=== PATIENT | male | born 1950 | race Caucasian/White ===

== ENCOUNTER 2022-05-15 14:27 | Inpatient (IN) | payer MEDICARE, OTHER ==
[~2022-05-15] VITALS: Ht 182.9 cm; Wt 104.7 kg
[2022-05-15] MEDS ORDERED: RINGERS SOLUTION,LACTATED 1,000 ML IV ONE (16:30)
[2022-05-15 16:49] LABS: BASOPHILS % (AUTO) 0.4 % (0.0-2.0); EOSINOPHILS % (AUTO) 0.4 % (1.0-6.0); HEMATOCRIT 42.9 % (41-53); HEMOGLOBIN 14.2 g/dL (13.5-17.5); LYMPHOCYTES # (AUTO) 1.4 K/uL (1.0-4.8); MEAN CORPUSCULAR HEMOGLOBIN 31.2 pg (26.0-34.0); MEAN CORPUSCULAR HGB CONC 33.1 G/dL (31.0-37.0); MEAN CORPUSCULAR VOLUME 94 fL (80-100); MONOCYTES # (AUTO) 0.8 K/uL (0.1-1.0); MONOCYTES % (AUTO) 8.9 % (2.0-9.0); NEUTROPHILS # (AUTO) 6.3 K/uL (1.8-7.7); NEUTROPHILS % (AUTO) 74.3 % (40.0-70.0); PLATELET COUNT (AUTO) 188 K/uL (150-450); RED BLOOD CELL COUNT(AUTO) 4.56 MIL/uL (4.50-5.90)
[2022-05-15 17:02] LABS: ANION GAP 6 mmol/L (8-16); CALCIUM, TOTAL 9.2 mg/dL (8.8-10.5); CARBON DIOXIDE 28 mmol/L (22-29); CHLORIDE 104 mmol/L (98-107); CREATININE 0.84 mg/dL (0.60-1.30); GLOMERULAR FILTR. RATE CALC > 60 mL/min (>60); GLUCOSE,RANDOM 103 mg/dL (70-110); POTASSIUM 3.9 mmol/L (3.5-5.1); SODIUM SERUM 138 mmol/L (136-145); UREA NITROGEN, BLOOD 15 mg/dL (7-18)
[2022-05-15 17:08] LABS: ALANINE AMINOTRANSFERASE 11 U/L (12-78); ALBUMIN 3.7 g/dL (3.4-5.0); ALKALINE PHOSPHATASE 86 U/L (46-116); ASPARTATE AMINOTRANSFERASE 26 U/L (15-37); TOTAL PROTEIN, SERUM 7.3 g/dL (6.4-8.2)
[2022-05-15 17:09] LABS: APPEARANCE,URINE CLEAR (CLEAR); BILIRUBIN,URINE NEGATIVE (NEGATIVE); GLUCOSE, URINE (UA) NEGATIVE (NEGATIVE); KETONES,URINE NEGATIVE (NEGATIVE); LEUKOCYTE ESTERASE ,URINE NEGATIVE (NEGATIVE); NITRATE,URINE NEGATIVE (NEGATIVE); OCCULT BLOOD,URINE NEGATIVE (NEGATIVE); PH,URINE 6.5 (5.0-8.0); PROTEIN,URINE NEGATIVE (NEGATIVE); SPECIFIC GRAVITIY, URINE 1.007 (1.003-1.030); UROBILINOGEN,URINE <=1.0 mg/dL (<=1.0)
[2022-05-15] MEDS ORDERED: ACETAMINOPHEN 325 MG TABLET PO PRN (18:45)
[2022-05-15] MEDS ORDERED: ONDANSETRON HCL 4 MG/2 ML VIAL IVP PRN (18:45)
[2022-05-15] MEDS ORDERED: BENA10TA77 PO (18:52)
[2022-05-15] MEDS ORDERED: VIT1TABL66 PO (18:52)
[2022-05-15] MEDS ORDERED: METO-558 PO (18:52)
[2022-05-15] MEDS ORDERED: GARL10005 PO (18:52)
[2022-05-15] MEDS ORDERED: ASPI-1444 PO (18:52)
[2022-05-15] MEDS ORDERED: HYDR10SY9 PO (18:52)
[2022-05-15] MEDS ORDERED: DOXE10CA42 PO (18:52)
[2022-05-15] MEDS ORDERED: TRAZ-257 PO (18:52)
[2022-05-15 20:21] LABS: COVID AG,FIA SOURCE NASOPHARYNGEAL
[2022-05-15] MEDS: DOCUSATE SODIUM 100 MG CAPSULE PO SCH (21:00)
[2022-05-15 22:59] VITALS: BP 133/89
[2022-05-16 04:28] VITALS: BP 125/90
[2022-05-16 07:31] VITALS: BP 121/75
[2022-05-16] MEDS: HEPARIN SODIUM,PORCINE 5,000 UNITS/ML VIAL SQ SCH ×3 (08:40→16:09)
[2022-05-16] MEDS: DOCUSATE SODIUM 100 MG CAPSULE PO SCH (08:41)
[2022-05-16] MEDS ORDERED: FAMOTIDINE 20 MG TABLET PO SCH (09:00)
[2022-05-16 11:59] VITALS: BP 136/68
== END 2022-05-16 16:50 | disposition home or self-care (01) | DRG 312 ==
LOC: EMS 14:30 → 5N 19:30
PROVIDERS: ADMIT Internal Medicine; ATTEND Internal Medicine
DX: R55 Syncope and collapse (principal); I10 Essential (primary) hypertension; Z20.822 Contact with and (suspected) exposure to COVID-19
CPT/HCPCS: 70450; 80053; 83690; 84484; 85025; 93005; 93306; 97163; 99285; J1644; J7120